=== PATIENT | male | born 1970 | race Caucasian/White ===

== ENCOUNTER 2021-04-20 04:15 | Emergency (ER) | payer SELFPAY ==
[~2021-04-20 04:15] MED LIST: BACTRIM DS TAB1 EACH PO; KEFLEX500 MG PO
[2021-04-20 05:04] LABS: HEMOGLOBIN 17.2 gm/dl (14.0-17.5); RED BLOOD COUNT 5.33 M/UL (4.20-5.50); WHITE BLOOD COUNT 7.5 K/UL (4.5-11.0)
[2021-04-20 05:22] LABS: BUN/CREATININE RATIO 16 (0-10)
[2021-04-20] MEDS ORDERED: ENDOCET 5-3251 EACH PO (08:03)
== END 2021-04-20 09:58 | disposition home or self-care (01) ==
LOC: ER1 04:15
PROVIDERS: Family Medicine
DX: S22.42XA Multiple fractures of ribs, left side, initial encounter for closed fracture (principal); S27.321A Contusion of lung, unilateral, initial encounter; S30.0XXA Contusion of lower back and pelvis, initial encounter; D69.6 Thrombocytopenia, unspecified; J98.4 Other disorders of lung; K76.9 Liver disease, unspecified; F17.200 Nicotine dependence, unspecified, uncomplicated; Z79.02 Long term (current) use of antithrombotics/antiplatelets; W22.8XXA Striking against or struck by other objects, initial encounter
CPT/HCPCS: 70450; 71045; 71260; 72125; 80053; 82550; 82553; 83874; 84484; 85025; 96374; 96375; 99284; J1170; J2270; J2405; J7030; Q9967